=== PATIENT | male | born 1965 | race Caucasian/White ===

== ENCOUNTER 2022-07-09 15:36 | Emergency (ER) | payer OTHER ==
[~2022-07-09] VITALS: Ht 170.1 cm; Wt 74.8 kg
[2022-07-09] MEDS ORDERED: HYDROCODONE-AC1 EAC1 PO (19:45)
[2022-07-09] MEDS ORDERED: NAPROXEN250 MG PO (19:45)
[2022-07-10] MEDS ORDERED: NAPROXEN250 MG PO (08:10)
[2022-07-10] MEDS ORDERED: HYDROCODONE-AC1 EAC1 PO (08:10)
== END 2022-07-09 19:45 | disposition home or self-care (01) ==
LOC: ED 15:36
DX: S22.31XA Fracture of one rib, right side, initial encounter for closed fracture (principal); S52.501A Unspecified fracture of the lower end of right radius, initial encounter for closed fracture; S52.601A Unspecified fracture of lower end of right ulna, initial encounter for closed fracture; V43.52XA Car driver injured in collision with other type car in traffic accident, initial encounter; Y93.89 Activity, other specified; Y92.89 Other specified places as the place of occurrence of the external cause; Y99.8 Other external cause status